=== PATIENT | female | born 1955 | race Caucasian/White ===

== ENCOUNTER 2019-10-04 00:36 | Day surgery (SDC) | payer OTHER, SELFPAY ==
[2019-09-28 14:46] VITALS: BMI 32.3
[2019-10-04 07:24] VITALS: BP 136/86; PULSE 81; RESP 16; TEMP 36.9; O2SAT 94; BMI 33.8
--- NOTE | 2019-10-04 07:45 | P.PNAN_ITS ---
Anes - Initial Pre Proc Eval Procedure: Operation Date: 10/04/19 08:00 Proposed Procedures p Screening Colonoscopy - Prem Branch MD Date/Time: 10/04/19 07:45 Surgeon: Prem Branch MD Pre Op Diagnosis: neoplasm screening Patient Data Age: 64 Gender: F Height: 5 ft 3 in Weight: 86.7 kg Last Vital Signs Temp 98.4 F 10/04/19 07:24 Pulse 81 10/04/19 07:24 Resp 16 10/04/19 07:24 BP 136/86 10/04/19 07:24 Pulse Ox 94 10/04/19 07:24 Allergies Allergy/AdvReac Type Severity Reaction Status Date / Time No Known Allergies Allergy Verified 10/04/19 06:59 Home Medications Medication Instructions Recorded Confirmed Type amlodipine 5 mg tablet 5 mg PO DAILY 06/25/19 10/04/19 History hydrochlorothiazide 25 mg tablet 25 mg PO DAILY 06/25/19 10/04/19 History simvastatin 20 mg tablet 20 mg PO DAILY 06/25/19 10/04/19 History Lacto.acidophilus-Bif.animalis 1 cap PO DAILY 09/28/19 10/04/19 History [Daily Probiotic] lysine [L-Lysine] 500 mg PO DAILY 09/28/19 10/04/19 History Patient hx anesthesia problems: none Family hx anesthesia problems: none [facility] Past Medical History Medical History (Updated 06/25/19 @ 22:08 by Alyson Rodriguez MD) Elevated glucose Essential (primary) hypertension Other hyperlipidemia Social History Social History Smoking status: Never smoker Second hand tobacco smoke exposure: No Alcohol intake: current Anes - Eval Final PreProcedure Day of Procedure 10/04/19 07:45 Patient weight: obese Heart: regular rate and rhythm Lungs: clear to auscultation Airway: Mallampati scale class III Neurological: alert and oriented Last oral intake: >/= 8 hours ASA classification: III Emergent: no Anesthetic plan: proceed Anesthesia type and monitoring: general GIVS and standard monitoring Informed Consent: The patient's anesthetic plan and its attendant risks and benefits were discussed with the patient/family/POA. Questions were solicited and answers provided to the satisfaction of the patient/family/POA.
[2019-10-04] MEDS: LACTATED RINGERS 1,000 ML 150 ML IV CONT (07:47)
--- NOTE | 2019-10-04 08:00 | WPDGICN ---
Assessment and Plan Assessment and plan (1) Encounter for screening for colorectal malignant neoplasm: Code(s): Z12.11 - Encounter for screening for malignant neoplasm of colon; Z12.12 - Encounter for screening for malignant neoplasm of rectum Status: Acute Assessment and Plan: Patient presents for screening colonoscopy. She has previously had colon polyps and her mother had colon polyp screening exam is advised at 5 year intervals. GI Consult Note Consult date/time: 10/04/19 08:00 HPI: Tawny Madden is a 64 year old female Seen in evaluation at the request of Dr. Alyson Rodriguez. Patient presents for screening colonoscopy. She states that her weight appetite bowel movements are normal. She denies abdominal pain. She has no blood in her stools. Her bowel habits are regular. Past medical history is significant that she had colon polyps by colonoscopy fiber 6 years prior to this. She has been treated for hypertension and elevated cholesterol. Family history is significant that her mother had colon polyps. Review of Systems Review of Systems: All systems reviewed & are unremarkable except as noted in HPI and below PMFSH Past Medical History Medical History (Updated 10/04/19 @ 08:02 by Prem Branch MD) Elevated glucose Essential (primary) hypertension Other hyperlipidemia Social History Social History Smoking status: Never smoker Second hand tobacco smoke exposure: No Alcohol intake: current Meds Home Medications and Allergies Home Medications Medication Instructions Recorded Confirmed Type amlodipine 5 mg tablet 5 mg PO DAILY 06/25/19 10/04/19 History hydrochlorothiazide 25 mg tablet 25 mg PO DAILY 06/25/19 10/04/19 History simvastatin 20 mg tablet 20 mg PO DAILY 06/25/19 10/04/19 History Lacto.acidophilus-Bif.animalis 1 cap PO DAILY 09/28/19 10/04/19 History [Daily Probiotic] lysine [L-Lysine] 500 mg PO DAILY 09/28/19 10/04/19 History Allergies Allergy/AdvReac Type Severity Reaction Status Date / Time No Known Allergies Allergy Verified 10/04/19 06:59 Vital Signs Vital Signs - 24 hr 10/04/19 07:24 Temperature 36.9 C Pulse Rate 81 Respiratory Rate 16 Blood Pressure 136/86 Pulse Oximetry 94 Exam Narrative: Exam Narrative: Physical exam reveals patient to be alert. Vital signs stable. HEENT exam unremarkable. Lungs are clear to auscultation and percussion. Heart is without murmur or extra sounds. Abdominal exam bowel sounds are present soft nontender with no organomegaly. Digital external rectal exam normal.
[2019-10-04 08:24] VITALS: BP 112/70; PULSE 66; RESP 16; O2SAT 97
[2019-10-04 08:34] VITALS: BP 117/75; PULSE 68; RESP 20; O2SAT 97
[2019-10-04 08:44] VITALS: BP 137/97; PULSE 68; RESP 18; O2SAT 98
== END 2019-10-04 08:56 | disposition home or self-care (01) ==
PROVIDERS: PCP Family Medicine; Visit Provider Internal Medicine Gastroenterology
PROC: 0DJD8ZZ Inspection of Lower Intestinal Tract, Via Natural or Artificial Opening Endoscopic (ICD-10-PCS; CPT 45378; principal; 2019-10-04 08:00)
DX: Z12.11 Encounter for screening for malignant neoplasm of colon (principal); K57.30 Diverticulosis of large intestine without perforation or abscess without bleeding; K64.8 Other hemorrhoids; Z86.010 Personal history of colon polyps; Z83.71 Family history of colonic polyps; I10 Essential (primary) hypertension; E78.5 Hyperlipidemia, unspecified; E66.9 Obesity, unspecified; Z68.33 Body mass index [BMI] 33.0-33.9, adult
CPT/HCPCS: 45378; J2704; J7120

== ENCOUNTER → 2020-11-07 10:55 | Outpatient (CLI) | payer OTHER, SELFPAY ==
--- NOTE | ~2020-11-07 | XR_ITS ---
EXAMINATION: XR lumbar spine min 4V DATE: 11/07/2020 12:25 INDICATION: Low back pain TECHNIQUE: Anteroposterior, lateral, and bilateral oblique views of the lumbar spine, and cone-down l ateral view of the lumbosacral junction were obtained. COMPARISON: None. FINDINGS: There is no fracture, dislocation, or subluxation. The vertebral body heights are normal. T here is moderate loss of intervertebral disc space height at L4-5. Moderate facet osteoarthritis is n oted in the lower lumbar spine. Small degenerative osteophytes project from the anterior endplates of multiple vertebral bodies. IMPRESSION: 1. Mild lumbar spondylosis without acute findings. Reviewed, dictated and finalized at location B.
--- NOTE | ~2020-11-07 | XR_ITS ---
EXAMINATION: XR sacrum coccyx min 2V INDICATION: Low back pain TECHNIQUE: Three views of the sacrum and coccyx are obtained. COMPARISON: None available FINDINGS: Bone alignment is normal. There is no fracture. There is mild osteoarthritis of the hips. M ild osteoarthritis is also noted in the lower lumbar spine. IMPRESSION: 1. No acute osseous abnormality. Reviewed, dictated and finalized at location B.
== END ==
PROVIDERS: PCP Family Medicine; Visit Provider Family Medicine
DX: M54.5 Low back pain (principal); M47.816 Spondylosis without myelopathy or radiculopathy, lumbar region
CPT/HCPCS: 72110; 72220

== ENCOUNTER 2024-07-05 13:37 | Outpatient (CLI) | payer MEDICARE, SELFPAY ==
--- NOTE | ~2024-07-05 | MM_ITS ---
EXAMINATION: MM screening buddy LT w hang HISTORY: Screening TECHNIQUE: Craniocaudal and mediolateral oblique 3-D tomosynthesis images were obtained and synthetic 2-D images were generated. CAD analysis was submitted and interpreted. COMPARISON: 10/16/2011 BREAST PARENCHYMAL COMPOSITION: Not dense: There are scattered areas of fibroglandular density. FINDINGS: There are scattered nodular asymmetries which have developed since prior examination. There are no suspicious calcifications or focal architectural distortion. IMPRESSION: 1. New nodular asymmetries of the left breast. 2. Additional mammographic views and possible breast ultrasound are recommended. BI-RADS Category 0: Incomplete: Needs additional imaging evaluation. Reviewed, dictated and finalized at location B. HEAR OPERATOR IMPRESSION: 1. New nodular asymmetries of the left breast. 2. Additional mammographic views and possible breast ultrasound are recommended . BI-RADS Category 0: Incomplete: Needs additional imaging evaluation.
== END 2024-07-05 13:38 | disposition home or self-care (01) ==
LOC: MICIMG 13:38
PROVIDERS: PCP Family Medicine; Visit Provider Family Medicine
DX: Z12.31 Encounter for screening mammogram for malignant neoplasm of breast (principal); R92.8 Other abnormal and inconclusive findings on diagnostic imaging of breast
CPT/HCPCS: 77063; 77067

== ENCOUNTER 2024-08-22 09:20 | Outpatient (CLI) | payer MEDICARE, SELFPAY ==
--- NOTE | ~2024-08-22 | MMUS_ITS ---
EXAMINATION: MM diagnostic buddy LT w hang, US breast LT complete HISTORY: Follow-up left breast masses TECHNIQUE: Additional 3-D tomosynthesis images of the left breast were performed and synthetic 2-D im ages were generated. CAD analysis was submitted and interpreted. High resolution complete left breast ultrasound was performed. COMPARISON: Comparison to multiple prior studies sequentially, with oldest reviewed study dated 06/25. BREAST PARENCHYMAL COMPOSITION: Not dense: There are scattered areas of fibroglandular density. FINDINGS: MAMMOGRAPHIC FINDINGS: There are multiple masses scattered throughout the left breast, partially obscured by fibroglandular tissue. There are no suspicious calcifications or architectural distortion. ULTRASOUND: Complete US of all 4 quadrants of the left breast/s and retroareolar region was reviewed. There are multiple simple cysts in the left breast. At 2:00, 8 cm from the nipple there is an oval ci rcumscribed parallel oriented 5 mm mass without posterior shadowing, likely benign. At 3:00, 9 cm fro m the nipple there is an oval hypoechoic parallel oriented mass measuring 3 mm with internal vascular ity and no posterior features, likely benign. At 10:00, 7 cm from the nipple there is a oval hypoecho ic 4 mm mass without posterior shadowing or internal vascularity. IMPRESSION: 1. Probable benign left breast masses. 2. Recommend 6 month follow-up diagnostic left mammogram and Limited left breast ultrasound BI-RADS category 3, probably benign findings. Reviewed, dictated and finalized at location A. RMATION ASSURANCE ENGINEER IMPRESSION: 1. Probable benign left breast masses. 2. Recommend 6 month follow-up diagnostic left mammogram and Limited left breas t ultrasound BI-RADS category 3, probably benign findings.
== END 2024-08-22 09:21 | disposition home or self-care (01) ==
LOC: MICIMG 09:21
PROVIDERS: PCP Family Medicine; Visit Provider Family Medicine
DX: R92.8 Other abnormal and inconclusive findings on diagnostic imaging of breast (principal)
CPT/HCPCS: 76641; 77061; 77065; G0279

== ENCOUNTER 2024-10-17 09:59 | Outpatient (CLI) | payer MEDICARE, SELFPAY ==
--- NOTE | ~2024-10-17 | XR_ITS ---
EXAMINATION: XR lumbar spine min 4V DATE: 10/17/2024 10:26 INDICATION: Low back pain radiating down the right hip and leg. TECHNIQUE: 5 views of lumbar spine were obtained. COMPARISON: Lumbar spine radiographs 11/07/2020 FINDINGS: Alignment is normal. Vertebral body heights are normal. There is moderately decreased disc height at L4-L5. There is multilevel facet joint osteoarthritis, severe in lower lumbar spine. IMPRESSION: 1. Moderate lumbar spondylosis. Reviewed, dictated and finalized at location A.
== END 2024-10-17 10:00 | disposition home or self-care (01) ==
PROVIDERS: PCP Family Medicine; Visit Provider Family Medicine
DX: M47.816 Spondylosis without myelopathy or radiculopathy, lumbar region (principal)
CPT/HCPCS: 72110

== ENCOUNTER 2025-02-19 07:45 | Outpatient (CLI) | payer MEDICARE, SELFPAY ==
--- NOTE | ~2025-02-19 | MMUS_ITS ---
EXAMINATION: MM diagnostic buddy LT w hang, US breast LT complete HISTORY: Follow-up left breast masses TECHNIQUE: Additional 3-D tomosynthesis images of the left breast were performed and synthetic 2-D im ages were generated. CAD analysis was submitted and interpreted. High resolution complete left breast ultrasound was performed. COMPARISON: Comparison to multiple prior studies sequentially, with oldest reviewed study dated 06/25. BREAST PARENCHYMAL COMPOSITION: Not dense: There are scattered areas of fibroglandular density. FINDINGS: MAMMOGRAPHIC FINDINGS: The left breast is stable. Scattered masses in the left breast are not significantly changed. No new masses, clustered calcifications or architectural distortion are identified in the left breast. ULTRASOUND: Complete US of all 4 quadrants of the left Breast/s and retroareolar region was reviewed. there are m ultiple cysts of the left breast without significant change from prior examination. No suspicious mas ses are identified to suggest malignancy. IMPRESSION: 1. Stable benign-appearing cysts of the left breast. No suspicious masses, calcifications or architec tural distortion in the left breast to suggest malignancy. 2. Routine yearly screening mammogram and regular clinical breast examination are recommended. BI-RADS Category 2: Benign finding(s). Reviewed, dictated and finalized at location B. IMPRESSION: 1. Stable benign-appearing cysts of the left breast. No suspicious masses, calc ifications or architectural distortion in the left breast to suggest malignancy . 2. Routine yearly screening mammogram and regular clinical breast examination a re recommended. BI-RADS Category 2: Benign finding(s).
== END 2025-02-19 07:46 | disposition home or self-care (01) ==
LOC: MICIMG 07:46
PROVIDERS: PCP Family Medicine; Visit Provider Family Medicine
DX: R92.8 Other abnormal and inconclusive findings on diagnostic imaging of breast (principal); N60.12 Diffuse cystic mastopathy of left breast
CPT/HCPCS: 76641; 77061; 77065; G0279

== ENCOUNTER 2025-05-22 00:09 | Day surgery (SDC) | payer MEDICARE, SELFPAY ==
[2025-05-14 10:24] VITALS: BMI 34.9
[2025-05-22 07:07] VITALS: BP 139/82; PULSE 78; RESP 20; TEMP 36.7; O2SAT 95; BMI 35.3
[2025-05-22] MEDS: LACTATED RINGERS 1,000 ML 150 ML IV CONT (07:29)
--- NOTE | 2025-05-22 07:41 | WPDANESEPPF ---
Anes - Initial Pre Proc Eval Procedure: Operation Date: 05/22/25 08:00 Proposed Procedures p Screening Colonoscopy - Cain Gallego MD Date/Time: 05/22/25 07:41 Surgeon: Cain Gallego MD Pre Op Diagnosis: Personal history of colon polyps, unspecified Patient Data Age: 69 Gender: F Height: 1.57 m Weight: 87.6 kg Last Vital Signs Temp 98.1 F 05/22/25 07:07 Pulse 78 05/22/25 07:07 Resp 20 05/22/25 07:07 BP 139/82 05/22/25 07:07 Pulse Ox 95 05/22/25 07:07 O2 Del Method Room Air 05/22/25 07:07 Allergies Allergy/AdvReac Type Severity Reaction Status Date / Time No Known Allergies Allergy Verified 05/22/25 07:06 Home Medications ?Medication ?Instructions ?Recorded ?Confirmed ?Type baclofen 10 mg tablet 10 mg PO QHS #14 tabs 10/16/24 05/22/25 Rx amlodipine 5 mg tablet See Rx Instructions .Route 03/27/25 05/22/25 Rx .COMPLEX #90 tabs hydrochlorothiazide 25 mg tablet See Rx Instructions .Route 03/27/25 05/22/25 Rx .COMPLEX #90 tabs simvastatin 20 mg tablet See Rx Instructions .Route 03/27/25 05/22/25 Rx .COMPLEX #90 tabs Patient hx anesthesia problems: none Family hx anesthesia problems: none Results Review: All pre-operative results and documents have been reviewed as part of the pre-operative evaluation. [facility] Past Medical History Medical History Knee pain, right Diabetes Encounter for colonoscopy due to history of colonic polyp (~09/2019) Elevated glucose Essential (primary) hypertension Other hyperlipidemia Family History Family History Mother Hypertension Patient's mother is in good health Family history of malignant neoplasm of kidney Father Patient's father is in good health, Onset Age: 82 Family history of coronary artery disease Sibling Patient's sister is in good health Patient's brother is in good health Social History Social History Smoking status: Never smoker Second hand tobacco smoke exposure: No Alcohol intake: current Substance use: never Substance use type: does not use Lack of Transportation: No Lack of Food: Never True Current Housing: I Have Housing Concerned About Future Housing: No Difficulty Paying Gas/Electric Bills: No Difficulty Paying for Meds: No Currently Unemployed: No Education: High School Diploma/GED Difficulty w/ Childcare or Family Care: No Living arrangements: with family Additional living arrangements comments: lives with . Occupation/Education: retired Gender identity (if verbalized by the patient): Female Sexual Orientation (if Verbalized by the Patient): Straight or Heterosexual Spiritual care concerns: No Agree to blood products: Yes Anes - Eval Final PreProcedure Day of Procedure 05/22/25 07:41 Patient weight: obese Lungs: normal air movement Airway: Mallampati scale class II Neurological: alert and oriented Last oral intake: >/= 8 hours ASA classification: II Emergent: no Anesthetic plan: proceed Anesthesia type and monitoring: general GIVS and standard monitoring Results Review: All pre-operative results and documents have been reviewed as part of the pre-operative evaluation. HTN, hyperlipidemia, active w 1-2 fos, no cp or sob. Informed Consent: The patient's anesthetic plan and its attendant risks and benefits were discussed with the patient/family/POA. Questions were solicited and answers provided to the satisfaction of the patient/family/POA.
--- NOTE | 2025-05-22 08:02 | PM.HPGS ---
History of Present Illness History of Present Illness Consent: Risks, benefits, and alternatives have been discussed and questions answered. Patient agrees to proceed with procedure. Chief complaint: Personal history of colon polyps, unspecified Narrative: Tawny Madden is a 69 year old female with history of colon polyps, last colonoscopy 2019 Review of Systems Review of Systems: All systems reviewed & are unremarkable except as noted in HPI and below PMFSH Past Medical History Medical History Knee pain, right Diabetes Encounter for colonoscopy due to history of colonic polyp (~09/2019) Elevated glucose Essential (primary) hypertension Other hyperlipidemia Family History Family History Mother Hypertension Patient's mother is in good health Family history of malignant neoplasm of kidney Father Patient's father is in good health, Onset Age: 82 Family history of coronary artery disease Sibling Patient's sister is in good health Patient's brother is in good health Social History Social History Smoking status: Never smoker Second hand tobacco smoke exposure: No Alcohol intake: current Substance use: never Substance use type: does not use Lack of Transportation: No Lack of Food: Never True Current Housing: I Have Housing Concerned About Future Housing: No Difficulty Paying Gas/Electric Bills: No Difficulty Paying for Meds: No Currently Unemployed: No Education: High School Diploma/GED Difficulty w/ Childcare or Family Care: No Living arrangements: with family Additional living arrangements comments: lives with . Occupation/Education: retired Gender identity (if verbalized by the patient): Female Sexual Orientation (if Verbalized by the Patient): Straight or Heterosexual Spiritual care concerns: No Agree to blood products: Yes Meds Home Medications and Allergies Home Medications ?Medication ?Instructions ?Recorded ?Confirmed ?Type baclofen 10 mg tablet 10 mg PO QHS #14 tabs 10/16/24 05/22/25 Rx amlodipine 5 mg tablet See Rx Instructions .Route 03/27/25 05/22/25 Rx .COMPLEX #90 tabs hydrochlorothiazide 25 mg tablet See Rx Instructions .Route 03/27/25 05/22/25 Rx .COMPLEX #90 tabs simvastatin 20 mg tablet See Rx Instructions .Route 03/27/25 05/22/25 Rx .COMPLEX #90 tabs Allergies Allergy/AdvReac Type Severity Reaction Status Date / Time No Known Allergies Allergy Verified 05/22/25 07:06 Vital Signs Vital Signs - 24 hr 05/22/25 07:07 Temperature 98.1 F Pulse Rate 78 Respiratory Rate 20 Blood Pressure 139/82 Pulse Oximetry 95 Oxygen Delivery Room Air Exam Const: General: comfortable and no acute distress HENMT: Face/Nose/Sinus: Normal nares present Eyes: General: appearance normal, both eyes and all related structures Neck: Neck: no JVD Resp: Auscultation: clear to auscultation bilaterally Cardio: Rate: regular rate Rhythm: regular rhythm GI: Inspection: non-distended GI Palp: Yes Soft to palpation Skin: General skin exam: normal color Neuro: General: gait normal Speech: normal speech Extrem: General: normal to inspection Psych: Mental Status: mental status grossly normal Assessment and Plan Assessment and plan (1) Personal history of colonic polyps: Code(s): Z86.0100 - Personal history of colon polyps, unspecified Status: Acute Assessment and Plan: colonoscopy
--- NOTE | 2025-05-22 08:18 | S_PTH ---
PATIENT: Tawny Madden LOC: [facility]#:[id number] AGE/SX: 69/F ROOM: RE05/22/[address]: Cain Gallego MD : 1955 BED: DIS: 05/22/2025 SPEC #: [id number] RECD: 05/22/25 09:13 STATUS: OTONIEL RERoman #: [id number] BRENDA: 05/22/25 08:[address]: Cain Gallego DEPT: [facility] Surgical RECD BY: Daniel Sebastian ENTERED: 05/22/25 09:14 SP TYPE: Surgical OTHR DR: Rita Fox PA-C Tissues: A - Colon Polypectomy Procedures: Hematoxylin and Eosin Stain Gross and Microscopic Level 4
[2025-05-22 08:20] VITALS: BP 109/68; PULSE 73; RESP 14; O2SAT 93
[2025-05-22 08:30] VITALS: BP 102/51; PULSE 72; RESP 20; O2SAT 100
[2025-05-22 08:40] VITALS: BP 132/74; PULSE 68; RESP 16; O2SAT 100
== END 2025-05-22 08:47 | disposition home or self-care (01) ==
PROVIDERS: PCP Student in an Organized Health Care Education/Training Program; Referring Provider Family Medicine; Visit Provider Internal Medicine Gastroenterology
PROC: 0DJD8ZZ Inspection of Lower Intestinal Tract, Via Natural or Artificial Opening Endoscopic (ICD-10-PCS; CPT 45378; principal; 2025-05-22 08:00)
DX: Z12.11 Encounter for screening for malignant neoplasm of colon (principal); D12.3 Benign neoplasm of transverse colon; K64.8 Other hemorrhoids; K57.30 Diverticulosis of large intestine without perforation or abscess without bleeding; E11.9 Type 2 diabetes mellitus without complications; E78.00 Pure hypercholesterolemia, unspecified; I10 Essential (primary) hypertension; E78.49 Other hyperlipidemia; E66.9 Obesity, unspecified; Z68.35 Body mass index [BMI] 35.0-35.9, adult; Z80.51 Family history of malignant neoplasm of kidney; Z82.49 Family history of ischemic heart disease and other diseases of the circulatory system
CPT/HCPCS: 45380; 88305; J2003; J2704; J7120